=== PATIENT | female | born 1990 | race Caucasian/White ===

== ENCOUNTER 2019-10-29 22:09 | Emergency (ER) | payer OTHER ==
[~2019-10-29] VITALS: Ht 172.7 cm; Wt 63.5 kg
--- NOTE | 2019-10-29 22:44 | NUR ---
ED Nurse Note: PT walked in c/o dog bite, pt states her dog bit her on left upper lip today, pt states her dog is up to date on vaccination, pt reports stinging pain on her lip, noted small lac on left upper lip, no bleeding at this time. unk T-dap vaccination date. will cont monitor.
[2019-10-29 22:45] VITALS: BP 117/77
[2019-10-29] MEDS ORDERED: AUGMENTIN 875-1 EAC1 ORAL (23:03)
--- NOTE | 2019-10-29 23:04 | Emergency Room Report ---
History of Present Illness General Chief Complaint: Animal Bite Source: Patient Present Illness HPI This is a 29-year-old female with no past medical history patient presents with chief complaint of dog bite to her face. The dog is her pet. She went down to kiss the dog and it snapped at her and bit her in the left upper lip. No other injury. This occurred prior to arrival. The dog shots are up-to-date. Patient tetanus immunizations up-to-date. No bleeding. Soreness to the area. No other injury. Allergies: Coded Allergies: No Known Allergies (Unverified , 10/29/19) Patient History Past Medical History: none, see triage record, old chart reviewed Past Surgical History: none Pertinent Family History: none Social History: Denies: smoking Now: No Immunizations: UTD Reviewed Nursing Documentation: PMH: Agreed; PSxH: Agreed Nursing Documentation-PMH Past Medical History: No Stated History Review of Systems Eye: Denies: eye pain, blurred vision ENT: Denies: ear pain, nose congestion, throat swelling Respiratory: Denies: cough, shortness of breath Cardiovascular: Denies: chest pain, palpitations Gastrointestinal: Denies: abdominal pain, diarrhea, nausea, vomiting Musculoskeletal: Denies: back pain, joint pain Skin: Denies: rash Neurological: Denies: headache, numbness Endocrine: Denies: increased thirst, increased urine Hematologic/Lymphatic: Denies: easy bruising All Other Systems: negative except mentioned in HPI Physical Exam Vital Signs Date Time Temp Pulse Resp B/P (MAP) Pulse Ox O2 Delivery O2 Flow Rate FiO2 10/29/19 22:32 99.0 90 18 117/77 (90) 98 Room Air vitals normal Sp02 EP Interpretation: reviewed, normal General Appearance: well appearing, no apparent distress, alert Head: normocephalic, atraumatic Eyes: bilateral eye PERRL, bilateral eye EOMI ENT: hearing grossly normal, normal pharynx, other - 1cm lac to left upper lip , involving vermilion border. not through and through Neck: full range of motion, supple, no meningismus Respiratory: chest non-tender, lungs clear, normal breath sounds Cardiovascular #1: regular rate, rhythm, no murmur Gastrointestinal: normal bowel sounds, non tender, no mass, no organomegaly, no bruit, non-distended Musculoskeletal: back normal, normal range of motion, gait/station normal Psychiatric: mood/affect normal Procedures Laceration/Wound Repair Laceration/Wound Repair : Consent: Verbal Wound Location: face Wound's Depth, Shape: superficial, linear Wound Length (cm): 1 Wound Explored: clean Irrigated w/ Saline (ccs): 500 Anesthesia: 1% Lidocaine Volume Anesthetic (ccs): 1 Wound Repaired With: sutures Suture Size/Type: 6:0, nylon Number of Sutures: 2 Patient Tolerated: Well Complications: None Medical Decision Making Diagnostic Impression: Primary Impression: Lip laceration Qualified Codes: S01.511A - Laceration without foreign body of lip, initial encounter Additional Impression: Dog bite Qualified Codes: W54.0XXA - Bitten by dog, initial encounter ER Course Patient with a superficial laceration to the left upper lip. He does involve the vermilion border. Is not through and through. Suture without any difficulty. No foreign body. Low risk for infection. Will discharge home. Last Vital Signs Date Time Temp Pulse Resp B/P (MAP) Pulse Ox O2 Delivery O2 Flow Rate FiO2 10/29/19 22:45 99.0 90 18 117/77 98 Room Air Status: improved Disposition: HOME, SELF-CARE Condition: Stable Scripts Amoxicillin/Potassium Clav 875-125* (AUGMENTIN 875-125 TABLET*) 1 Each Tablet 1 TAB ORAL TWICE A DAY, #14 TAB Prov: Greg Garrison MD 10/29/19 Additional Instructions: Keep wound clean. Suture out in 7 days. Follow-up here or with your doctor to have suture removal. Return if worse. Greg Garrison MD Oct 29, 2019 23:04
[2019-10-29 23:10] VITALS: BP 117/77
--- NOTE | 2019-10-29 23:10 | NUR ---
ED Nurse Note: pt is cleared to be d/c per ERMD, pt discharge instruction along with prescription given, pt education done, stitches intact, pt advised to follow up with pcp or return to ed in 7 days for suture removal, return if sx worsen, pt verbalized understanding and agrees with plan, vss, ambulatory w/steady gait, accompanied by father left with all belongings.
== END 2019-10-29 23:10 | disposition home or self-care (01) ==
LOC: EMR 22:25
DX: S01.511A Laceration without foreign body of lip, initial encounter (principal); W54.0XXA Bitten by dog, initial encounter
CPT/HCPCS: 12001; Z7502; 99283

== ENCOUNTER 2019-11-05 13:50 | Emergency (ER) | payer OTHER ==
[~2019-11-05] VITALS: Ht 172.7 cm; Wt 65.8 kg
[~2019-11-05 13:50] MED LIST: AUGMENTIN 875-1 EAC1 ORAL
--- NOTE | 2019-11-05 14:45 | NUR ---
ED Nurse Note: Patient walked into ED from home for removal of stitches that was done here at [facility] on 10/29/19.
--- NOTE | 2019-11-05 14:59 | Emergency Room Report ---
History of Present Illness General Chief Complaint: Wound Recheck/Suture Removal Source: Patient Present Illness HPI 29-year-old female with no symptom past medical history here requesting suture removal. Patient had sutures placed in her left upper lip 1 week ago at [facility]. Denies any fever and chills, pus drainage from the wound. Allergies: Coded Allergies: No Known Allergies (Unverified , 10/29/19) Patient History Past Medical History: see triage record Past Surgical History: unable to obtain Pertinent Family History: none Last Menstrual Period: 11/03/19 Now: No Immunizations: UTD Reviewed Nursing Documentation: PMH: Agreed; PSxH: Agreed Nursing Documentation-PMH Past Medical History: No Stated History Review of Systems All Other Systems: negative except mentioned in HPI Physical Exam Vital Signs Date Time Temp Pulse Resp B/P (MAP) Pulse Ox O2 Delivery O2 Flow Rate FiO2 11/05/19 14:13 97.9 61 17 99/71 (80) 98 Room Air Sp02 EP Interpretation: reviewed, normal General Appearance: well appearing, no apparent distress Head: normocephalic, atraumatic ENT: hearing grossly normal, normal voice Neck: full range of motion, supple, thyroid normal, no meningismus Respiratory: normal inspection, chest non-tender, lungs clear, no rhonchi, no respiratory distress, no wheezing, speaking full sentences Cardiovascular #1: normal peripheral pulses, regular rate, rhythm, no murmur Gastrointestinal: soft Genitourinary: no CVA tenderness Musculoskeletal: gait/station normal Neurologic: alert, normal gait Psychiatric: mood/affect normal Skin: laceration - Repair laceration left upper lip Lymphatic: normal inspection, no adenopathy Medical Decision Making PA Attestation All diagnoses and treatment plans were reviewed and discussed with my supervising physician Dr. Duffy Diagnostic Impression: Primary Impression: Encounter for removal of sutures ER Course 29-year-old female with no symptom past medical history here requesting sutureremoval. Patient had sutures placed in her left upper lip 1 week ago at [facility]. Denies any fever and chills, pus drainage from the wound. Ddx considered but are not limited to : Superficial laceration, deep laceration , tendon involvement with laceration, laceration with foreign body Vital signs: are WNL, pt. is afebrile H&PE are most consistent with: Suture removal ORDERS: none ED INTERVENTIONS: suture removal DISCHARGE: At this time pt. is stable for d/c to home. Will provide printed patient care instructions, and any necessary prescriptions. Care plan and follow up instructions have been discussed with the patient prior to discharge. Last Vital Signs Date Time Temp Pulse Resp B/P (MAP) Pulse Ox O2 Delivery O2 Flow Rate FiO2 11/05/19 14:13 97.9 61 17 99/71 (80) 98 Room Air Disposition: HOME, SELF-CARE Condition: Stable Patient Instructions: Wound Check Serena Landon Nov 05, 2019 14:59
--- NOTE | 2019-11-05 15:05 | NUR ---
ER DISCHARGE NOTE: Patient is cleared to be discharged per ERMD, pt is aox4, on room air, with stable vital signs. pt was given dc and prescription instructions, pt was able to verbalize understanding, pt id band removed without complications. pt is able to ambulate with steady gait. pt took all belongings.
[2019-11-05 15:19] VITALS: BP 99/71
== END 2019-11-05 15:05 | disposition home or self-care (01) ==
LOC: EMR 14:50
DX: S01.511D Laceration without foreign body of lip, subsequent encounter (principal); X58.XXXD Exposure to other specified factors, subsequent encounter; Z48.02 Encounter for removal of sutures
CPT/HCPCS: 99281